=== PATIENT | male | born 1975 | race Two or more races ===

== ENCOUNTER 2017-04-21 14:08 | Emergency (ER) | payer MEDICAID ==
[~2017-04-21] VITALS: Ht 167.6 cm; Wt 124.7 kg
--- NOTE | 2017-04-21 14:24 | NUR ---
PRESENTS SELF TO ED DT PRESSURE LIKE HEADACHE X FEW DAYS WORST TODAY, 07/25, NON RADIATING, PATIENT APPEARS IN NO APPARENT DISTRESS. RESPIRATION EVEN AND UNLABORED. AFEBRILE.. PT ALSO IN ED 04/16/17 FOR SAME REASON., VSS
--- NOTE | 2017-04-21 14:37 | NUR ---
Patient discharged to home in stable condition. Written and verbal after care instructions given. Patient verbalizes understanding of instruction.
[2017-04-21 14:38] VITALS: BP 136/83
== END 2017-04-21 14:39 | disposition home or self-care (01) ==
LOC: ER 14:12
DX: R51 Headache (principal); E11.9 Type 2 diabetes mellitus without complications; Z86.73 Personal history of transient ischemic attack (TIA), and cerebral infarction without residual deficits
CPT/HCPCS: 99283; A4606; Z7610

== ENCOUNTER 2017-05-01 10:47 | Inpatient (IN) | payer OTHER, MEDICAID ==
[~2017-05-01] VITALS: Ht 167.6 cm; Wt 122.9 kg
--- NOTE | 2017-05-01 11:05 | NUR ---
PT BIB RA IN CUSTODY C/O L SIDED CP NON-PROVOLED RADIATING TO L ARM WHICH WAS 10/10 WITH ASSOCIATED DYSPNEA. 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 RESP EVEN UNLABORED. SKIN WARM NONDIAPHORETIC. 0/10 PAIN. A/OX4. NAD NOTED. IN ER BED 12.
[2017-05-01 11:07] LABS: BASOPHILS % (AUTO) 0.4 % (0.0-2.0); EOSINOPHILS # (AUTO) 0.1 /CMM (0.0-0.7); EOSINOPHILS % (AUTO) 1.7 % (0.0-6.0); HEMATOCRIT 43 % (39-51); HEMOGLOBIN 13.5 g/dL (13.5-17.5); LYMPHOCYTES # (AUTO) 2.5 /CMM (0.8-4.8); LYMPHOCYTES % (AUTO) 28.8 % (20.0-44.0); MEAN CORPUSCULAR HEMOGLOBIN 24 PG (26.0-33.0); MEAN CORPUSCULAR HGB CONC 32 g/dl (31.0-36.0); MEAN CORPUSCULAR VOLUME 76 fL (80-96); MONOCYTES # (AUTO) 0.4 /CMM (0.1-1.30); MONOCYTES % (AUTO) 4.2 % (2.0-12.0); NEUTROPHILS # (AUTO) 5.7 /CMM (1.8-8.9); NEUTROPHILS % (AUTO) 64.9 % (43.0-81.0); PLATELET COUNT (AUTO) 368 /CMM (150-450); RDW COEFFICIENT OF VARIATION 14.6 (11.5-15.0); RED BLOOD CELL COUNT(AUTO) 5.66 MIL/uL (4.5-6.0); WHITE BLOOD COUNT (AUTO) 8.7 K/uL (4.3-11.0)
[2017-05-01 11:17] LABS: CALCIUM, SERUM 8.9 mg/dL (8.5-10.1); CARBON DIOXIDE 28 mmol/L (21-32); CHLORIDE 108 mmol/L (98-107); CREATININE 0.8 mg/dL (0.6-1.3); GLUCOSE 117 mg/dL (74-106); POTASSIUM 4.7 mmol/L (3.5-5.1); SODIUM SERUM 141 mmol/L (136-145); UREA NITROGEN, BLOOD 17 mg/dL (7-18)
[2017-05-01 11:20] LABS: INR 0.95 (0.87-1.13); PROTHROMBIN TIME 9.9 SECS (9.5-12.7)
[2017-05-01 11:26] LABS: TROPONIN I < 0.017 ng/mL (0.00-0.056)
[2017-05-01] MEDS ORDERED: INSU3INS6 SQ (11:28)
[2017-05-01] MEDS ORDERED: GABA-532 PO (11:28)
[2017-05-01] MEDS ORDERED: SIMV40TA5 PO (11:28)
[2017-05-01] MEDS ORDERED: LISI-607 PO (11:28)
[2017-05-01] MEDS ORDERED: ASPI-991 PO (11:28)
--- NOTE | 2017-05-01 11:29 | NUR ---
CALLED NURSING AUTO BRAKE TECHNICIAN FOR TELE BED
--- NOTE | 2017-05-01 11:34 | NUR ---
PAGED DR GARCIA REGULATORY AGENCY DIRECTOR FOR PANEL
--- NOTE | 2017-05-01 11:51 | NUR ---
TELE [phone]
--- NOTE | 2017-05-01 12:04 | NUR ---
REPORT GIVEN TO YUMIKO LEE FOR ADMISSION. NAD NOTED. RESTING QUIETLY.
[2017-05-01 12:30] VITALS: BP 126/77
[2017-05-01 12:45] VITALS: BP 126/79
[2017-05-01] MEDS: LISINOPRIL (5MG) 5 MG TABLET PO SCH ×2 (13:00→21:18)
[2017-05-01] MEDS: ASPIRIN EC 81 MG TABLET.DR PO SCH (13:00)
[2017-05-01] MEDS ORDERED: ASPIRIN 81 MG TAB.CHEW PO SCH (13:00)
--- NOTE | 2017-05-01 13:00 | NUR ---
RECEIVED PT ON BED, ALERT AND ORIENTED X4. PT REPORTS NO PAIN AND SHOWS NO SIGNS OF DISCOMFORT. BED IS IN LOW AND LOCKED POSITION, SIDE RAILS UP X2, AND CALL LIGHT IS IN REACH. WILL CONTINUE TO MONITOR.
[2017-05-01 13:15] LABS: MAGNESIUM 2.1 mg/dL (1.8-2.4)
[2017-05-01] MEDS ORDERED: NITROGLYCERIN 0.4 MG/TAB BOTTLE SL PRN (13:30)
[2017-05-01] MEDS ORDERED: ONDANSETRON HCL/PF 4 MG/2 ML VIAL IVP PRN (13:30)
[2017-05-01] MEDS ORDERED: MORPHINE SULFATE INJ 2 MG/ML DISP.SYRIN IV PRN (13:30)
[2017-05-01 13:35] LABS: THYROID STIMULATING HORMONE 1.558 uIU/mL (0.358-3.74)
[2017-05-01] MEDS: GABAPENTIN 100 MG CAPSULE PO SCH ×2 (14:03→17:16)
[2017-05-01] MEDS: PANTOPRAZOLE 40 MG TABLET.DR PO SCH (14:03)
[2017-05-01] MEDS: CLOPIDOGREL BISULFATE 75 MG TABLET PO SCH (14:03)
--- NOTE | 2017-05-01 15:41 | NUR ---
LISINOPRIL NON ADMINISTERED. SPOKE TO [facility], DOSE TO BE GIVEN AT BEDTIME.
[2017-05-01 16:00] VITALS: BP 132/72
--- NOTE | 2017-05-01 18:40 | NUR ---
PT IS NPO STARTING AT NIGHT. [place] SCHEDULED FOR THE MORNING.
--- NOTE | 2017-05-01 18:55 | NUR ---
PT IS SLEEPING IN BED, NO COMPLAINTS OF PAIN. IV ON R AC INTACT AND PATENT, SALINE LOCKED. ALL MEDS GIVEN ORDERED. BED IS IN LOW AND LOCKED POSITION, SIDE RAILS UP X2 AND CALL LIGHT IS IN REACH. WILL ENDORSE TO [employer] HEAD COOK NURSE FOR CONTINUITY OF CARE.
--- NOTE | 2017-05-01 19:30 | NUR ---
RN NOTE; RECEIVED PT IN BED SLEEPING. AROUSES EASILY. BREATHING EVENLY. NO SOB. NAD. NO S/S OF PAIN OR DISCOMFORT. HEART MONITOR IN PLACE READING SR/SB RATING 58-61 BPM ON MONITOR. SECURITY OFFICERS AT THE BEDSIDE. WILL CONT TO MONITOR ,
[2017-05-01 20:00] VITALS: BP 121/66
[2017-05-01] MEDS ORDERED: ENOXAPARIN SODIUM 40 MG/0.4 ML DISP.SYRIN SQ SCH (21:00)
--- NOTE | 2017-05-01 21:03 | NUR ---
NOTED W/ A CANCELLED ORDER FOR STRESS TEST IN AM. PLACED A CALL TO DR. JAMES AND CLARIFIED THE ORDER. PER MD TO PUT THE ORDER BACK IN. PT WILL HAVE THE TEST IN AM. PT AWARE AND AGREE .
[2017-05-01] MEDS ORDERED: INSULIN DETEMIR 100 UNIT/ML CARTRIDGE SQ SCH (22:00)
[2017-05-01] MEDS ORDERED: SIMVASTATIN 40 MG TABLET PO SCH (22:00)
[2017-05-02] VITALS: BP 115/53
[2017-05-02 04:00] VITALS: BP 124/72
--- NOTE | 2017-05-02 06:51 | NUR ---
RN NOTE; PT IN BED SLEEPING, NO ACUTE EVENT DURING THE NIGHT. NO C/O CP. NPO FOR STRESS TEST. SR/SB ON TELE MONITOR. WILL CONT TO MONITOR AND WILL ENDORSE TO AM SHIFT FOR SONIA.
[2017-05-02 07:06] LABS: BASOPHILS % (AUTO) 0.4 % (0.0-2.0); EOSINOPHILS # (AUTO) 0.2 /CMM (0.0-0.7); EOSINOPHILS % (AUTO) 1.7 % (0.0-6.0); HEMATOCRIT 42 % (39-51); HEMOGLOBIN 13.5 g/dL (13.5-17.5); LYMPHOCYTES # (AUTO) 3.5 /CMM (0.8-4.8); LYMPHOCYTES % (AUTO) 37.2 % (20.0-44.0); MEAN CORPUSCULAR HEMOGLOBIN 25 PG (26.0-33.0); MEAN CORPUSCULAR HGB CONC 32 g/dl (31.0-36.0); MEAN CORPUSCULAR VOLUME 76 fL (80-96); MONOCYTES # (AUTO) 0.5 /CMM (0.1-1.30); MONOCYTES % (AUTO) 5.8 % (2.0-12.0); NEUTROPHILS # (AUTO) 5.1 /CMM (1.8-8.9); NEUTROPHILS % (AUTO) 54.9 % (43.0-81.0); PLATELET COUNT (AUTO) 292 /CMM (150-450); RDW COEFFICIENT OF VARIATION 15.4 (11.5-15.0); RED BLOOD CELL COUNT(AUTO) 5.48 MIL/uL (4.5-6.0); WHITE BLOOD COUNT (AUTO) 9.4 K/uL (4.3-11.0)
[2017-05-02 07:58] LABS: POTASSIUM 4.2 mmol/L (3.5-5.1)
[2017-05-02 07:59] LABS: CALCIUM, SERUM 8.6 mg/dL (8.5-10.1); CREATININE 0.8 mg/dL (0.6-1.3); PHOSPHORUS 4.1 mg/dL (2.5-4.9)
[2017-05-02 08:00] VITALS: BP 115/74
--- NOTE | 2017-05-02 08:00 | NUR ---
tele manager terminal: cardio f/u seen and examined by dr. becerra with order to d'c tele and ambulate ad steffanie. order acknowledge. pt remains npo, pt for stress test this morning. pt is on police custody. will continue to monitor.
--- NOTE | 2017-05-02 08:06 | NUR ---
tele assembly machine offbearer: notes tele removed as ordered.
--- NOTE | 2017-05-02 09:20 | NUR ---
m/s drywall sander: notes pt taken down for stress test via w/c accompanied by tech and security police officer with one hand handcuffed to w/c.
[2017-05-02] MEDS ORDERED: REGADENOSON 0.4 MG/5 ML DISP.SYRIN IVP ONE (09:30)
--- NOTE | 2017-05-02 10:20 | NUR ---
m/s pullman conductor: notes pt back from stress test and will be bulk picker once more in an hour. breakfast ordered, spoke to angelo.
[2017-05-02] MEDS: PANTOPRAZOLE 40 MG TABLET.DR PO SCH (10:47)
[2017-05-02] MEDS: ASPIRIN EC 81 MG TABLET.DR PO SCH (10:47)
[2017-05-02] MEDS: GABAPENTIN 100 MG CAPSULE PO SCH (10:47)
[2017-05-02] MEDS: CLOPIDOGREL BISULFATE 75 MG TABLET PO SCH (10:47)
--- NOTE | 2017-05-02 11:25 | NUR ---
m/s national van truck driver: notes pt picked up for phase 2 via w/c at this time accompanied by tech and 2 police officers.
--- NOTE | 2017-05-02 12:02 | NUR ---
m/s primary substance abuse counselor: notes pt back from stress test accompanied by police officers and tech. instructed to call for assistance. will continue to monitor.
--- NOTE | 2017-05-02 12:40 | NUR ---
m/s nursing home social worker: notes dr. becerra called and spoke to cn and per md, pt can be discharge back to [facility]. stress test normal. pt made aware. dr. goetz notified and made aware with order ok to discharge back to [facility] under police custody and continue home medications.
--- NOTE | 2017-05-02 12:45 | NUR ---
m/s steel erector: d'c instructions discharge instructions given to pt and verbalized understanding. h/l removed with tip intact with no bleeding, no redness, and no swelling noted.
--- NOTE | 2017-05-02 13:10 | NUR ---
m/s cna instructor: discharged discharged pt back to group home under police custody with all valuables and d'c papers in stable condition.
== END 2017-05-02 13:10 | DRG 206 ==
LOC: ER 10:48 → TELE 12:57 → MED 05-02 08:45
PROVIDERS: ADMIT Internal Medicine; ATTEND Internal Medicine
DX: M94.0 Chondrocostal junction syndrome [Tietze] (principal); Z68.41 Body mass index [BMI] 40.0-44.9, adult; I10 Essential (primary) hypertension; E66.01 Morbid (severe) obesity due to excess calories; E11.9 Type 2 diabetes mellitus without complications; Z79.4 Long term (current) use of insulin; Z86.73 Personal history of transient ischemic attack (TIA), and cerebral infarction without residual deficits; Z98.61 Coronary angioplasty status; I25.10 Atherosclerotic heart disease of native coronary artery without angina pectoris
CPT/HCPCS: 36415; 71010-TC; 80048-TC; 80061-TC; 82962-TC; 83735-TC; 84100-TC; 84439-TC; 84443-TC; 84484-TC; 85025-TC; 85730-TC; 87081-TC; 93307-TC; A4606; A9502; J1650; J1815; J2785; Z7610